=== PATIENT | male | born 1955 | race Caucasian/White ===

== ENCOUNTER 2017-06-21 09:07 | Day surgery (SDC) | payer OTHER ==
[2014-11-10 18:51] VITALS: BMI 26.3
[2017-06-21] MEDS ORDERED: Propofol 10 mg/ml Inj (20 ML) ONE (11:43)
[2017-06-21] MEDS ORDERED: Lidocaine 1% Inj (20ml) ONE (11:44)
[2017-06-21] MEDS ORDERED: Lactated Ringer's 500 ML IV ONE (11:45)
[2017-06-21 11:52] VITALS: O2SAT 100
[2017-06-21 12:33] VITALS: TEMP 97.8
[2017-06-21 12:57] VITALS: PULSE 63; RESP 12
[2017-06-21 12:58] VITALS: BP 115/74
== END 2017-06-21 12:58 | disposition home or self-care (01) ==
LOC: C.ENDO 09:07
PROVIDERS: ATTEND Internal Medicine Gastroenterology
DX: K29.50 Unspecified chronic gastritis without bleeding (principal); K30 Functional dyspepsia; K59.00 Constipation, unspecified; K64.8 Other hemorrhoids; B96.81 Helicobacter pylori [H. pylori] as the cause of diseases classified elsewhere
CPT/HCPCS: 43239; 45378; 82948; 88305; 88342; J2704; J7120